=== PATIENT | male | born 1955 | race Caucasian/White ===

== ENCOUNTER 2022-09-24 21:15 | Emergency (ER) | payer MEDICAID, OTHER, SELFPAY ==
--- NOTE | ~2022-09-24 | XR_ITS ---
EXAMINATION: XR CHEST CLINICAL INFORMATION: Cough. COMPARISON: None available. TECHNIQUE: Frontal view of the chest was obtained. FINDINGS: Streaky opacities in the left greater than right lung bases, favored to represent subsegmental atelectasis. Otherwise, clear lungs. No pleural effusion or pneumothorax. No significant cardiomediastinal contour abnormality. No acute osseous findings. XR/XR chest 1V IMPRESSION: Bibasilar subsegmental atelectasis. Otherwise, clear lungs. No pleural effusion or pneumothorax.
[2022-09-24 21:24] VITALS: BP 143/93; PULSE 104; RESP 20; TEMP 38.2; O2SAT 94; BMI 27.3
[2022-09-24 22:24] LABS: Influenza A PCR NEGATIVE (Negative); Influenza B PCR NEGATIVE (Negative); Resp Syncy Virus RNA Qual PCR NEGATIVE (Negative); SARS COV2 PCR INHOUSE NEGATIVE (Negative)
[2022-09-25] MEDS: Acetaminophen 325 MG TABLET 650 MG PO (00:45)
[2022-09-25 00:46] LABS: MANUAL DIFF FLAG NO
[2022-09-25 00:47] LABS: Basophils Percent Auto 0.3 % (0-2); Eosinophils Absolute Auto 0.1 X10*3/uL (0.0-0.4); Eosinophils Percent Auto 0.8 % (0-4); Hematocrit 42.9 % (42.0-52.0); Hemoglobin 14.6 g/dl (14.0-18.0); Imm Gran Abs Auto 0.02 X10*3/uL (0.00-0.03); Imm Gran Pct Auto 0.2 % (0.0-0.4); Lymphocytes Absolute Auto 1.4 X10*3/uL (1.2-4.9); Lymphocytes Percent Auto 12.2 % (20-40); Mean Corpuscular Hemoglobin 32.3 pg (27.0-33.0); Mean Corpuscular Volume 94.9 fL (80.0-98.0); Mean Platelet Volume 9.3 fL (9.4-12.4); Monocytes Absolute Auto 0.9 X10*3/uL (0.1-1.2); Monocytes Percent Auto 7.7 % (2-11); Neutrophils Absolute Auto 9.1 x10*3/uL (2.0-8.3); Neutrophils Percent Auto 78.8 % (45-73); Platelet Count 310 X10*3/uL (160-400); Red Blood Count 4.52 X10*6/uL (4.60-5.80); Red Cell Distribution Width 12.8 % (11.0-16.0); White Blood Count 11.6 X10*3/uL (4.8-10.8)
--- NOTE | 2022-09-25 00:56 | ED_ITS ---
HPI - General Adult General Chief complaint: Fever Stated complaint: fever,high bp,coughing Time Seen by Provider: 09/25/22 00:07 Source: patient Mode of arrival: ambulatory Limitations: no limitations History of Present Illness HPI narrative: This is a 67-year-old male presenting to the emergency department fatigue, malaise, myalgias, dry cough for the past 3 days worsening. He thinks he may have some wheezing. Symptoms came on suddenly. Patient denies sick contacts. Patient denies chest pain, shortness of breath, nausea, vomiting, abdominal pain, vision changes, dizziness, headache, urinary symptoms or changes in bowel habits. Related Data Previous Rx's Medication Instructions Recorded albuterol sulfate 90 mcg/actuation 2 inh inhalation Q4-6H PRN 09/25/22 breath activated powder inhaler shortness of breath or wheezing #1 ea benzonatate 100 mg capsule 100 mg PO BID PRN cough #20 caps 09/25/22 doxycycline hyclate 100 mg capsule 100 mg PO BID 10 days #20 caps 09/25/22 prednisone 20 mg tablet 40 mg PO DAILY 5 days #10 tabs 09/25/22 Allergies Allergy/AdvReac Type Severity Reaction Status Date / Time No Known Allergies Allergy Verified 09/24/22 21:24 Review of Systems Review of Systems: Constitutional : No Weight loss, + Fever, + Chills, + Fatigue, + Malaise ENT/Mouth : No sore throat, No Rhinorrhea Eyes: No Eye Pain, No Swelling, No Redness Cardiovascular : No Chest Pain, No SOB, No Dyspnea on Exertion, No Orthopnea, No Edema, No Palpitations Respiratory : + Cough, No Sputum, + Wheezing Gastrointestinal : No Nausea, No Vomiting, No Diarrhea, No Constipation, No abdominal Pain, No Hematochezia, No Melena Genitourinary : No Dysuria, No Urinary Frequency, No Hematuria, Musculoskeletal : No joint pain, No Myalgias, No Joint Swelling Skin : No Skin Lesions, No rash Neuro : No Weakness, No Numbness, No Dizziness, No Headache Psych : No Anxiety/Panic, No Depression All other systems reviewed and are negative Yes all other systems are reviewed and are negative [facility] Past Medical History Attestation statement: The following information was validated with the patient. Source: old records reviewed and nursing notes reviewed Social History Social History Advance Directives: No Advance Directives Information Provided: Yes Physical Exam ED Vital Signs: Vital Signs - 24 hr 09/24/22 21:24 Temperature 100.8 F H Pulse Rate 104 H Respiratory Rate 20 Blood Pressure 143/93 H Pulse Oximetry 94 Oxygen Delivery Method Room Air BMI result Body Mass Index 27.3 vss Appearance: Alert.? Oriented X3.? No acute distress.? Head: Normocephalic, atraumatic, no step-offs or deformities Eyes: Pupils equal, round and reactive to light.? CVS: Normal heart rate and rhythm.? Pulses normal.? Respiratory: No respiratory distress.? Breath sounds w/ faint expiratory wheez ing throughout on expiration .? Abdomen: Soft and nontender.? Skin: Skin warm and dry.? Normal skin color.? Normal skin turgor.? Extremities: No lower extremity edema.? No calf ttp. 5/5 strength to bilateral upper and lower extremities Neuro: Oriented X 3.? No motor deficit.? No sensory deficit. CN 2-12 intact Course Reevaluation(s) Reevaluation #1: Gave albuterol inhaler, prednisone and doxycycline here. CBC with slight leukocytosis however no left shift. Chemistry unremarkable. Normal lactic acid. COVID, RSV and influenza negative. Suspected bacterial bronchitis. Will treat with doxycycline, albuterol, prednisone. Advised to return with new or worsening symptoms. Educated patient on diagnosis and treatment plan, answered all question, patient verbalizes understanding. At this time patient will be discharged home, advised to return with new or worsening symptoms. Educated on worrisome signs and symptoms and when to return. At this time I feel comfortable discharge home. Time: 01:11 Medications Administered Discontinued Medications Generic Name Dose Route Start Last Admin Trade Name Ross PRN Reason Stop Dose Admin Acetaminophen 650 mg 09/25/22 00:07 09/25/22 00:45 Acetaminophen 325 Mg Tablet PO 09/25/22 00:08 650 mg ONCE ONE Administration Medical Decision Making Medical Decision Making [facility] Narrative: [id number] 67-year-old male presents URI symptoms the past 3 days reports subjective fevers and chills. Physical examination benign. Breath sounds w/ Breath sounds w/ faint expiratory wheezing throughout on expiration . Patient nontoxic appearing. Vital signs significant for fever, tachycardia. Concerns for possible bacterial bronchitis versus viral illness. Unlikely pulmonary embolism, pneumonia, ACS. Tachycardia likely secondary to fever. Plan at this time antipyretic, basic labs, blood cultures, lactic, chest x-ray and viral test. Differential Diagnosis Differential Diagnoses: The differential diagnosis associated with the presentation includes Concerns for possible bacterial bronchitis versus viral illness. Unlikely pulmonary embolism, pneumonia, ACS. Tachycardia likely secondary to fever. Admission/Observation Consideration of admission/observation: Escalation of care including admission/observation considered Not indicated Lab Data MDM Lab Attestation statement: I reviewed the patient's lab results. 09/25/22 00:40 09/25/22 00:40 Labs: Lab Results 09/24/22 09/25/22 Range/Units 21:41 00:40 WBC 11.6 H (4.8-10.8) X10*3/uL RBC 4.52 L (4.60-5.80) X10*6/uL Hgb 14.6 (14.0-18.0) g/dl Hct 42.9 (42.0-52.0) % MCV 94.9 (80.0-98.0) fL MCH 32.3 (27.0-33.0) pg MCHC 34.0 (31.0-36.0) g/dl RDW 12.8 (11.0-16.0) % Plt Count 310 (160-400) X10*3/uL MPV 9.3 L (9.4-12.4) fL Immature Gran % (Auto) 0.2 (0.0-0.4) % Neut % (Auto) 78.8 H (45-73) % Lymph % (Auto) 12.2 L (20-40) % [place] % (Auto) 7.7 (2-11) % Eos % (Auto) 0.8 (0-4) % Baso % (Auto) 0.3 (0-2) % Lymph # (Auto) 1.4 (1.2-4.9) X10*3/uL [place] # (Auto) 0.9 (0.1-1.2) X10*3/uL Eos # (Auto) 0.1 (0.0-0.4) X10*3/uL Baso # (Auto) 0.0 (0.0-0.2) X10*3/uL Abs Immat Gran (auto) 0.02 (0.00-0.03) X10*3/uL Absolute Neuts (auto) 9.1 H (2.0-8.3) x10*3/uL Absolute Nucleated RBC 0.000 (0.0-0.012) X10*3/uL Nucleated RBC % (auto) 0.0 (0.0-0.2) /100WBC Influenza Type A (PCR) NEGATIVE (Negative) Influenza Type B (PCR) NEGATIVE (Negative) RSV RNA Qual (PCR) NEGATIVE (Negative) SARS-CoV-2 RNA (RT-PCR) NEGATIVE (Negative) Independent Interpretation I performed an independent interpretation of an: Plain X-Ray (XR/XR chest 1V IMPRESSION: Bibasilar subsegmental atelectasis. Otherwise, clear lungs. No pleural effusion or pneumothorax.) Radiology Impression Discussion of test interpretation with radiology: I have reviewed the radiologist's reading. Core Measures AMI core measures followed: Yes Measure exclusions: not indicated Critical Care Time Critical Care Time Critical Care Time: No Discharge Plan Discharge Clinical Impression: Bronchitis Patient Disposition: Home, Self-Care Instructions: Acute Bronchitis (ED) Additional Instructions: Take your medications as prescribed. If you were prescribed antibiotics today, it is important that you take your medication to their entirety, do not skip any doses, do not finish them early. Follow-up with your primary care provider this week. Return to the emergency department with new or worsening symptoms. Such as fevers, chills, chest pain, shortness of breath, nausea, vomiting, dizziness, headache, vision changes, lethargy In case of emergency call 911 Prescriptions: New prednisone 20 mg tablet 40 mg PO DAILY 5 Days Qty: 10 0RF albuterol sulfate 90 mcg/actuation aerosol powdr breath activated 2 inh inhalation Q4-6H PRN (Reason: shortness of breath or wheezing) Qty: 1 0RF doxycycline hyclate 100 mg capsule 100 mg PO BID 10 Days Qty: 20 0RF benzonatate 100 mg capsule 100 mg PO BID PRN (Reason: cough) Qty: 20 0RF Referrals: Physician,None [Primary Care Provider] - 2 days Stand Alone Forms: Work/School Release
[2022-09-25 00:59] LABS: Lactic Acid 0.8 mmol/L (0.5-2.0)
[2022-09-25 01:04] LABS: Alanine Aminotransferase 16 U/L (0-40); Albumin Level 4.1 g/dL (3.5-5.0); Alkaline Phosphatase 76 U/L (39-117); Anion Gap 15 (12-20); Aspartate Amino Transferase 16 U/L (5-37); Blood Urea Nitrogen 11 mg/dL (9-16); Calcium 8.7 mg/dL (8.4-10.2); Carbon Dioxide 24 mmol/L (22-29); Chloride 104 mmol/L (96-108); Creatinine Clr Calc Pharmacy 85.2; Estimated Glomerular Filt Rate > 60; Glucose Random 111 mg/dL (60-115); Potassium 4.2 mmol/L (3.3-5.1); Sodium 139 mmol/L (135-145); Total Protein 7.9 g/dL (6.5-8.0)
[2022-09-25 01:17] VITALS: RESP 16; O2SAT 98
[2022-09-25] MEDS: Albuterol Sulfate 90 MCG 8 GM INHALER 4 PUFF INHALE (01:17)
[2022-09-25] MEDS: Doxycycline Monohydrate 100 MG CAPSULE PO (01:22)
[2022-09-25] MEDS: predniSONE 20 MG TABLET 40 MG PO (01:22)
== END 2022-09-25 01:22 | disposition home or self-care (01) ==
PROVIDERS: Physician Assistant; Emergency Provider Emergency Medicine
DX: J40 Bronchitis, not specified as acute or chronic (principal); R50.9 Fever, unspecified; Z20.822 Contact with and (suspected) exposure to COVID-19; Z20.828 Contact with and (suspected) exposure to other viral communicable diseases
CPT/HCPCS: 0241U; 36415; 71045; 80053; 83605; 85025; 87040; 94640; 94664; 99283; 99284

== ENCOUNTER 2023-05-22 10:52 | Emergency (ER) | payer MEDICAID, OTHER, SELFPAY ==
--- NOTE | ~2023-05-22 | XR_ITS ---
EXAMINATION: XR LUMBAR SPINE CLINICAL INFORMATION: Reason for Exam pain after lifting, radiating down L leg COMPARISON: None TECHNIQUE: Frontal lateral and coned-down L5-S1 frontal lateral, total of 3 views FINDINGS: Five [id number] lumbar vertebrae were identified maintaining normal height and alignments. Narrowing of intervertebral disc spaces suggest underlying degenerative disc disease. Paravertebral soft tissues are unremarkable. There are radiolucencies, most likely superimposed bowel gas.. No radiographic evidence of osteolytic or osteoblastic lesions. XR/XR lumbar spine 2-3V IMPRESSION: Degenerative disc disease, no fracture.
[2023-05-22 11:04] VITALS: BP 197/112; PULSE 79; TEMP 36.6; O2SAT 97; BMI 27.1
--- NOTE | 2023-05-22 11:04 | ED.BACK ---
HPI - Back Pain/Injury General Chief Complaint: General Medical Stated Complaint: back pain Time Seen by Provider: 05/22/23 11:38 Source: patient Limitations: no limitations History of Present Illness HPI Narrative: Patient is a 68-year-old male presents emergency department with reports of diffuse lower back pain. Onset was 3 days ago, states it began after he was doing some heavy lifting. No overt fall or trauma. Pain does radiate down the left leg but not on the right. Denies fevers, chills, burning with micturition, urinary frequency/urgency/hesitancy, bladder or bowel dysfunction, numbness or tingling of the perineum or bilateral legs. Denies any recent surgical procedures, any known immune compromising conditions, personal history of cancer, or IV drug usage. He also states that he requires a refill on his medications, he does not have a PCP in the area, he moved from [facility] a little over a year ago, and states he will be running out of his medications soon. He takes levothyroxine 100 mcg daily, in addition he is supposed to be taking losartan 50 mg twice daily that has only been taking it once a day that he does not run out. Denies Headache vision changes shortness breath, numbness or tingling of the extremities, edema. MD elicited complaint: back pain Related Data Previous Rx's Medication Instructions Recorded albuterol sulfate 90 mcg/actuation 2 inh inhalation Q4-6H PRN 09/25/22 breath activated powder inhaler shortness of breath or wheezing #1 ea benzonatate 100 mg capsule 100 mg PO BID PRN cough #20 caps 09/25/22 doxycycline hyclate 100 mg capsule 100 mg PO BID 10 days #20 caps 09/25/22 prednisone 20 mg tablet 40 mg (2 x 20 mg) PO DAILY 5 days 09/25/22 #10 tabs cyclobenzaprine 10 mg tablet 10 mg PO TID PRN muscle spasm #20 05/22/23 tabs levothyroxine 100 mcg capsule 100 mcg PO DAILY #30 caps 05/22/23 losartan 50 mg tablet 50 mg PO BID #60 tabs 05/22/23 Allergies Allergy/AdvReac Type Severity Reaction Status Date / Time No Known Allergies Allergy Verified 09/24/22 21:24 Review of Systems Review of Systems: Yes all other systems are reviewed and are negative PMFSH Past Medical History Attestation statement: The following information was validated with the patient. Source: old records reviewed Onset Date is defined in the Problem List Problems that require an onset date and time if occurred within 24 hrs of arrival to the ED Aortic Dissection and Rupture; Neurologic impairment; Cardiopulmonary Arrest; Endotracheal Intubation; Insertion or Replacement of Mechanical Circulatory Assist Device Medical History (Updated 05/22/23 @ 15:37 by Taylor Daily CNP) Hypothyroidism Hypertension Social History Social History Advance Directives: No Advance Directives Information Provided: No Physical Exam Vital Signs: Vital Signs: Last Vital Signs Temp 98.2 F 05/22/23 15:36 Pulse 90 05/22/23 15:36 Resp 19 05/22/23 15:36 BP 158/92 H 05/22/23 15:36 Pulse Ox 98 05/22/23 15:36 O2 Del Method Room Air 05/22/23 15:36 BMI result Body Mass Index 27.1 Appearance: Alert.?Oriented to person, place and time. No acute distress.?Normal affect. Eyes: Pupils equal, round and reactive to light.? ENT: Pharynx normal.?? Neck: Normal inspection.? Neck supple.?? CVS: Heart sounds normal. Normal heart rate and rhythm.? Pulses normal; bilateral radial pulses 2+, bilateral posterior tibial/dorsalis pedis pulses 2+.? Respiratory: No respiratory distress.? Lung sounds clear to auscultation bilaterally?? Abdomen: Soft and non-tender. Normoactive bowel sounds. No pulsatile mass.?? Skin: Skin warm and dry.? Normal skin color.? Normal skin turgor.?? Extremities: No lower extremity edema.? No calf ttp? Back: + mild paraspinal muscular tenderness from lumbar region to coccyx. No CVA tenderness. No midline spinal tenderness, step-off's, or deformity. Full ROM intact in bilateral lower extremities. Straight leg test negative on right; Straight leg test positive on left. No rashes, lesions, areas of induration or fluctuance, or signs of infection noted., Neuro: Moves all extremities spontaneously. 5/5 strength in hip extension/flexion, abduction, adduction. Sensation to light touch intact bilaterally. Patellar and Achilles reflex 2+ bilaterally. No ataxia, gait normal and steady.. No focal neuro deficits. Course Course Course Narrative: This is a rapid medical exam: Additional HPI, ROS, PE not included below will be deferred to primary provider. Patient is a 68-year-old [place]-speaking male presenting to the ED with complaint of lower back pain for the past 3 days. Denies fall or other trauma. States pain began after lifting something heavy. States pain is radiating down left leg. BP elevated in triage, reports hx of HTN. Does not currently have a PCP, but was on medication for his BP in [facility]. Has been here one year. Will also be running out of his thyroid medication soon. Denies saddle anesthesia, bowel or bladder incontinence, fever. Was prescribed Losartan 50mg BID and levothyroxine 100mcg in [facility]. Has small supply of his medications left, has been taking the Losartan daily instead of BID. Plan: X-ray Medications Administered Discontinued Medications Generic Name Dose Route Start Last Admin Trade Name Freq PRN Reason Stop Dose Admin Cyclobenzaprine HCl 10 mg 05/22/23 11:45 05/22/23 12:19 Cyclobenzaprine Hcl 10 Mg Tablet PO 05/22/23 11:46 10 mg ONCE ONE Administration Hydralazine HCl 10 mg 05/22/23 13:49 05/22/23 14:14 Hydralazine Hcl 20 Mg/Ml Vial IVPUSH 05/22/23 13:50 10 mg ONCE ONE Administration Protocol Losartan Potassium 50 mg 05/22/23 11:53 05/22/23 12:19 Losartan Potassium 50 Mg Tablet PO 05/22/23 11:54 50 mg ONCE ONE Administration Protocol Medical Decision Making Medical Decision Making MDM Narrative: patient is a 68-year-old male past medical history of hypertension and hyperthyroidism presenting to the emergency department for evaluation of lower back pain as per HPI. XR obtained prior to my assumption of care reveals Degenerative changes but no acute fracture. given onset of pain after heavy lifting, I suspect Pain is most consistent with muscular pain due to a strain with radicular component as it is radiating down the right leg, although cannot completely exclude herniated disc. On neurological exam there are no deficits. Not consistent with spinal fracture, spinal infection, epidural abscess, AAA, epidural abscess, or dissection. No high risk past medical history including incontinence, fever, immunosuppression, recent surgery or lumbar puncture, coagulopathy, significant trauma, recent unintentional weight loss, pulsatile mass, history of cancer, history of TB, history of IV drug use that would warrant MRI or CT. Not consistent with pyelonephritis, urinary tract infection, renal calculi, appendicitis, diverticulitis. On exam no concern for cauda equina syndrome. No additional imaging is currently indicated at this time. he received Flexeril while in the emergency department with improvement in pain. obtained basic labs and urinalysis as he has uncontrolled hypertension and known hypothyroidism, no evidence of end-organ damage, not consistent with thyroid storm or myxedema coma. was hypertensive in the emergency department systolic blood pressure over 110, unfortunately his oral losartan did not improve this, and required IV hydralazine 10 mg, with improvement 158/92 upon manual reassessment. prescriptions for losartan levothyroxine were sent to local pharmacy with 30 days' supply, and provided with contact information for local primary care providers. Reviewed worrisome signs and symptoms that would warrant re-evaluation in the emergency department. All questions answered. Stable for discharge. Differential Diagnosis Differential Diagnoses: The differential diagnosis associated with the presentation includes ( see narrative above) Admission/Observation Consideration of admission/observation: Escalation of care including admission/observation considered ( see narrative above) Lab Data MDM Lab Attestation statement: I reviewed the patient's lab results. ( See narrative above) 05/22/23 12:00 05/22/23 11:59 Labs: Lab Results 05/22/23 05/22/23 05/22/23 Range/Units 11:59 12:00 13:00 WBC 5.3 (4.8-10.8) X10*3/uL RBC 4.60 (4.60-5.80) X10*6/uL Hgb 15.3 (14.0-18.0) g/dl Hct 44.4 (42.0-52.0) % MCV 96.5 (80.0-98.0) fL MCH 33.3 H (27.0-33.0) pg MCHC 34.5 (31.0-36.0) g/dl RDW 12.7 (11.0-16.0) % Plt Count 251 (160-400) X10*3/uL MPV 9.7 (9.4-12.4) fL Immature Gran % (Auto) 0.2 (0.0-0.4) % Neut % (Auto) 65.5 (45-73) % Lymph % (Auto) 22.1 (20-40) % [place] % (Auto) 9.0 (2-11) % Eos % (Auto) 2.4 (0-4) % Baso % (Auto) 0.8 (0-2) % Lymph # (Auto) 1.2 (1.2-4.9) X10*3/uL [place] # (Auto) 0.5 (0.1-1.2) X10*3/uL Eos # (Auto) 0.1 (0.0-0.4) X10*3/uL Baso # (Auto) 0.0 (0.0-0.2) X10*3/uL Abs Immat Gran (auto) 0.01 (0.00-0.03) X10*3/uL Absolute Neuts (auto) 3.5 (2.0-8.3) x10*3/uL Absolute Nucleated RBC 0.000 (0.0-0.012) X10*3/uL Nucleated RBC % (auto) 0.0 (0.0-0.2) /100WBC Sodium 139 (135-145) mmol/L Potassium 4.4 (3.3-5.1) mmol/L Chloride 105 (96-108) mmol/L Carbon Dioxide 27 (22-29) mmol/L Anion Gap 11 L (12-20) BUN 15 (9-16) mg/dL Creatinine 0.80 (0.5-1.4) mg/dL Estim Creat Clear Calc 81.9 Estimated GFR > 60 Random Glucose 88 (60-115) mg/dL Calcium 9.0 (8.4-10.2) mg/dL Total Bilirubin 0.5 (0.0-1.0) mg/dL AST 17 (5-37) U/L ALT 18 (0-40) U/L Alkaline Phosphatase 75 (39-117) U/L Total Protein 7.8 (6.5-8.0) g/dL Albumin 4.2 (3.5-5.0) g/dL TSH 1.57 (0.32-4.0) uIU/mL Urine Color Yellow Urine Appearance Clear Urine pH 7.0 (5.0-9.0) Ur Specific [place] 1.015 (1.005-1.025) Urine Protein Negative (Neg-Trace) mg/dL Urine Glucose (UA) Negative (Negative) mg/dL Urine Ketones Negative (Negative) mg/dL Urine Blood Negative (Negative) Urine Nitrite Negative (Negative) Ur Leukocyte Esterase Negative (Negative) Independent Interpretation I performed an independent interpretation of an: Plain X-Ray ( I personally interpreted XR imaging and agree with radiologist impression.) Radiology Impression Discussion of test interpretation with radiology: I have reviewed the radiologist's reading. Radiologist Impression: XR/XR lumbar spine 2-3V IMPRESSION: Degenerative disc disease, no fracture. Prescription Management I considered prescription management with: Pain Medication and Other ( See narrative above) Critical Care Time Critical Care Time Critical Care Time: Yes Total Critical Care Time: 35 Attestation: I personally attest to this critical care time spent taking care of the patient exclusive of all other billable procedures was approximately 35 minutes including initial evaluation of patient, ordering tests, x-ray interpretation, EKG interpretation, medical consultation, documentation, re-evaluation. Discharge Plan Discharge Clinical Impression: Acute lumbar radiculopathy, Hypertension, Hypothyroidism Patient Disposition: Home, Self-Care Instructions: Hypothyroidism (ED), Lumbar Radiculopathy (ED), Hypertension (ED), Lower Back Exercises (ED) Prescriptions: New losartan 50 mg tablet 50 mg PO BID Qty: 60 0RF levothyroxine 100 mcg capsule 100 mcg PO DAILY Qty: 30 0RF cyclobenzaprine 10 mg tablet 10 mg PO TID PRN (Reason: muscle spasm) Qty: 20 0RF No Action prednisone 20 mg tablet 40 mg PO DAILY 5 Days Qty: 10 0RF albuterol sulfate 90 mcg/actuation aerosol powdr breath activated 2 inh inhalation Q4-6H PRN (Reason: shortness of breath or wheezing) Qty: 1 0RF doxycycline hyclate 100 mg capsule 100 mg PO BID 10 Days Qty: 20 0RF benzonatate 100 mg capsule 100 mg PO BID PRN (Reason: cough) Qty: 20 0RF Interventions: ED Discharge Assessment Last Done: 05/22/23 15:46 Discharge Date/Time: 05/22/23 15:46
[2023-05-22 12:03] LABS: MANUAL DIFF FLAG NO
[2023-05-22 12:05] LABS: Basophils Percent Auto 0.8 % (0-2); Eosinophils Absolute Auto 0.1 X10*3/uL (0.0-0.4); Eosinophils Percent Auto 2.4 % (0-4); Hematocrit 44.4 % (42.0-52.0); Hemoglobin 15.3 g/dl (14.0-18.0); Imm Gran Abs Auto 0.01 X10*3/uL (0.00-0.03); Imm Gran Pct Auto 0.2 % (0.0-0.4); Lymphocytes Absolute Auto 1.2 X10*3/uL (1.2-4.9); Lymphocytes Percent Auto 22.1 % (20-40); Mean Corpuscular HGB Conc 34.5 g/dl (31.0-36.0); Mean Corpuscular Hemoglobin 33.3 pg (27.0-33.0); Mean Corpuscular Volume 96.5 fL (80.0-98.0); Mean Platelet Volume 9.7 fL (9.4-12.4); Monocytes Absolute Auto 0.5 X10*3/uL (0.1-1.2); Neutrophils Absolute Auto 3.5 x10*3/uL (2.0-8.3); Neutrophils Percent Auto 65.5 % (45-73); Platelet Count 251 X10*3/uL (160-400); Red Cell Distribution Width 12.7 % (11.0-16.0); White Blood Count 5.3 X10*3/uL (4.8-10.8)
[2023-05-22] MEDS: Cyclobenzaprine HCl 10 MG TABLET PO (12:19)
[2023-05-22] MEDS: Losartan Potassium 50 MG TABLET PO (12:19)
[2023-05-22 12:26] VITALS: BP 172/108
[2023-05-22 12:26] LABS: Alanine Aminotransferase 18 U/L (0-40); Albumin Level 4.2 g/dL (3.5-5.0); Alkaline Phosphatase 75 U/L (39-117); Anion Gap 11 (12-20); Aspartate Amino Transferase 17 U/L (5-37); Bilirubin Total 0.5 mg/dL (0.0-1.0); Blood Urea Nitrogen 15 mg/dL (9-16); Carbon Dioxide 27 mmol/L (22-29); Chloride 105 mmol/L (96-108); Creatinine Clr Calc Pharmacy 81.9; Estimated Glomerular Filt Rate > 60; Glucose Random 88 mg/dL (60-115); Potassium 4.4 mmol/L (3.3-5.1); Sodium 139 mmol/L (135-145); Total Protein 7.8 g/dL (6.5-8.0)
[2023-05-22 12:40] LABS: TSH reflex Free T4 1.57 uIU/mL (0.32-4.0)
--- NOTE | 2023-05-22 12:54 | PC.NURSE ---
ambulated to bathroom with steady gait to provide urine sample
[2023-05-22 13:15] LABS: Appearance Urine Clear; Color Urine Yellow; Glucose Urine UA Negative (Negative); Leukocyte Esterase Urine Negative (Negative); Nitrite Urine Negative (Negative); Specific Gravity - Urine 1.015 (1.005-1.025); Urine Blood Negative (Negative); Urine Ketones Negative (Negative); Urine Protein Negative (Neg-Trace)
[2023-05-22 13:49] VITALS: BP 172/110; PULSE 77; RESP 16; TEMP 36.8; O2SAT 96
[2023-05-22] MEDS: hydrALAZINE HCl 20 MG/ML VIAL 10 MG IVPUSH (14:14)
--- NOTE | 2023-05-22 14:16 | PC.NURSE ---
TEO established, medicated per the [facility]
[2023-05-22 14:45] VITALS: BP 168/105; PULSE 86; RESP 16; O2SAT 98
[2023-05-22 15:36] VITALS: BP 158/92; PULSE 90; RESP 19; TEMP 36.8; O2SAT 98
== END 2023-05-22 15:46 | disposition home or self-care (01) ==
PROVIDERS: Nurse Practitioner Family; Emergency Provider Student in an Organized Health Care Education/Training Program
DX: M54.16 Radiculopathy, lumbar region (principal); I10 Essential (primary) hypertension; E03.9 Hypothyroidism, unspecified
CPT/HCPCS: 36415; 72100; 80053; 81003; 84443; 85025; 96374; 99284; J0360

== ENCOUNTER 2023-06-09 10:17 | Emergency (ER) | payer MEDICAID, OTHER, SELFPAY ==
--- NOTE | ~2023-06-09 | CT_ITS ---
EXAMINATION: CT ABDOMEN AND PELVIS WITHOUT CONTRAST CLINICAL INFORMATION: Abdominal pain COMPARISON: None available. TECHNIQUE: Multidetector volumetric imaging was performed from the superior aspect of the liver through the pubic symphysis. Sagittal and coronal reformatted images were obtained on the technologist's workstation. This CT examination was performed using dose optimization techniques as appropriate, variously including the following: *Automated exposure control *Adjustment of mA and/or kV according to patient size (this includes techniques or standardized protocols for targeted exams where dose is matched to indication/reason for exam; i.e. extremities or head) *Use of iterative reconstruction technique DLP: 408 mGy-cm FINDINGS: LUNG BASES: The visualized lung bases are unremarkable. LIVER, GALLBLADDER, AND BILIARY TREE: The liver is normal in size, shape, and attenuation. No focal hepatic lesion or biliary ductal dilatation is present. The gallbladder is unremarkable with no evidence of radiopaque gallstones, gallbladder wall thickening, or obvious pericholecystic inflammatory changes. PANCREAS: Unremarkable. SPLEEN: Unremarkable. ADRENAL GLANDS: Unremarkable. KIDNEYS AND URETERS: The kidneys are normal in size, shape, and attenuation. No hydronephrosis, hydroureter, or calculi seen. There are multiple right renal cysts, only one of these cysts may not be simple, and this resides along the lateral interpolar cortex of the right kidney anteriorly where there is an apparent dependent layering fluid level in the cyst measuring 3.4 x 1.8 cm, likely layering protein or hemorrhage. No perinephric stranding. BLADDER: Unremarkable. GASTROINTESTINAL TRACT: There is wall thickening and pericolic fat stranding involving the sigmoid colon and rectum compatible with proctosigmoiditis. Remainder of the colon is unremarkable. Normal appendix. Stomach and small bowel are unremarkable. ABDOMINAL WALL: Bilateral fat-containing inguinal hernias without inflammation LYMPH NODES: Normal. VASCULAR: Aorta is mildly atherosclerotic but normal caliber. PELVIC VISCERA: Prostate is enlarged measuring 6.2 cm transversely. OSSEOUS STRUCTURES: No acute or suspicious osseous abnormalities. CT/CT abdomen pelvis wo IV con IMPRESSION: * Proctosigmoiditis. Infectious and inflammatory etiologies are considered. * Right renal cysts, most which are simple. There is one which may be complex or complicated cyst along the anterior interpolar cortex of the right kidney. Recommend nonemergent renal ultrasound for further evaluation.
[2023-06-09 11:16] VITALS: BP 142/84; PULSE 88; RESP 18; TEMP 36.5; O2SAT 96; BMI 27.5
--- NOTE | 2023-06-09 11:22 | ED_ITS ---
HPI - Abdominal Pain General Chief Complaint: Nausea/Vomiting/Diarrhea Stated Complaint: Abdominal pain Related Data Previous Rx's Medication Instructions Recorded albuterol sulfate 90 mcg/actuation 2 inh inhalation Q4-6H PRN 09/25/22 breath activated powder inhaler shortness of breath or wheezing #1 ea benzonatate 100 mg capsule 100 mg PO BID PRN cough #20 caps 09/25/22 doxycycline hyclate 100 mg capsule 100 mg PO BID 10 days #20 caps 09/25/22 prednisone 20 mg tablet 40 mg (2 x 20 mg) PO DAILY 5 days 09/25/22 #10 tabs cyclobenzaprine 10 mg tablet 10 mg PO TID PRN muscle spasm #20 05/22/23 tabs levothyroxine 100 mcg capsule 100 mcg PO DAILY #30 caps 05/22/23 losartan 50 mg tablet 50 mg PO BID #60 tabs 05/22/23 Allergies Allergy/AdvReac Type Severity Reaction Status Date / Time No Known Allergies Allergy Verified 06/09/23 11:16 [facility] Past Medical History Medical History (Updated 06/09/23 @ 20:01 by RAJESH Denis) Hypothyroidism Hypertension Social History Social History Advance Directives: No Advance Directives Information Provided: No Physical Exam ED Vital Signs: Vital Signs - 24 hr 06/09/23 11:16 Temperature 97.7 F Pulse Rate 88 Respiratory Rate 18 Blood Pressure 142/84 H Pulse Oximetry 96 Oxygen Delivery Method Room Air BMI result Body Mass Index 27.5 Course Course Course Narrative: RME:?68 yo male here with abdominal pain and diarrhea x1 day. Reports abd pain improves with passing BM. Endorses blood in toilet bowl after BM. No abd surgeries. no pepto bismol or iron supplements. labs, OBS, CT ordered Full HPI, ROS and PE to be performed by the primary ED provider. Reevaluation(s) Reevaluation #1: Patient left the ED without completing treatment Medical Decision Making Lab Data 06/09/23 11:30 06/09/23 11:30 Labs: Lab Results 06/09/23 Range/Units 11:30 WBC 19.8 H (4.8-10.8) X10*3/uL RBC 4.99 (4.60-5.80) X10*6/uL Hgb 16.4 (14.0-18.0) g/dl Hct 46.8 (42.0-52.0) % MCV 93.8 (80.0-98.0) fL MCH 32.9 (27.0-33.0) pg MCHC 35.0 (31.0-36.0) g/dl RDW 12.3 (11.0-16.0) % Plt Count 223 (160-400) X10*3/uL MPV 9.5 (9.4-12.4) fL Immature Gran % (Auto) 0.5 H (0.0-0.4) % Neut % (Auto) 88.9 H (45-73) % Lymph % (Auto) 4.9 L (20-40) % [place] % (Auto) 5.5 (2-11) % Eos % (Auto) 0.0 (0-4) % Baso % (Auto) 0.2 (0-2) % Lymph # (Auto) 1.0 L (1.2-4.9) X10*3/uL [place] # (Auto) 1.1 (0.1-1.2) X10*3/uL Eos # (Auto) 0.0 (0.0-0.4) X10*3/uL Baso # (Auto) 0.0 (0.0-0.2) X10*3/uL Abs Immat Gran (auto) 0.10 H (0.00-0.03) X10*3/uL Absolute Neuts (auto) 17.6 H (2.0-8.3) x10*3/uL Absolute Nucleated RBC 0.000 (0.0-0.012) X10*3/uL Nucleated RBC % (auto) 0.0 (0.0-0.2) /100WBC PT 13.3 (11.1-13.3) SEC INR 1.1 (0.9-1.1) Sodium 137 (135-145) mmol/L Potassium 3.7 (3.3-5.1) mmol/L Chloride 103 (96-108) mmol/L Carbon Dioxide 27 (22-29) mmol/L Anion Gap 11 L (12-20) BUN 17 H (9-16) mg/dL Creatinine 0.84 (0.5-1.4) mg/dL Estim Creat Clear Calc 73.0 Estimated GFR > 60 Random Glucose 125 H (60-115) mg/dL Calcium 9.3 (8.4-10.2) mg/dL Magnesium 2.2 (1.6-2.6) mg/dL Total Bilirubin 0.6 (0.0-1.0) mg/dL AST 20 (5-37) U/L ALT 25 (0-40) U/L Alkaline Phosphatase 82 (39-117) U/L Total Protein 8.2 H (6.5-8.0) g/dL Albumin 4.2 (3.5-5.0) g/dL Lipase 13 (8-78) U/L Discharge Plan Discharge Clinical Impression: Abdominal pain Patient Disposition: Left W/O Completing Treatment Prescriptions: No Action prednisone 20 mg tablet 40 mg PO DAILY 5 Days Qty: 10 0RF albuterol sulfate 90 mcg/actuation aerosol powdr breath activated 2 inh inhalation Q4-6H PRN (Reason: shortness of breath or wheezing) Qty: 1 0RF doxycycline hyclate 100 mg capsule 100 mg PO BID 10 Days Qty: 20 0RF benzonatate 100 mg capsule 100 mg PO BID PRN (Reason: cough) Qty: 20 0RF losartan 50 mg tablet 50 mg PO BID Qty: 60 0RF levothyroxine 100 mcg capsule 100 mcg PO DAILY Qty: 30 0RF cyclobenzaprine 10 mg tablet 10 mg PO TID PRN (Reason: muscle spasm) Qty: 20 0RF Discharge Date/Time: 06/09/23 19:55
[2023-06-09 11:34] LABS: MANUAL DIFF FLAG NO
[2023-06-09 11:35] LABS: Basophils Percent Auto 0.2 % (0-2); Hematocrit 46.8 % (42.0-52.0); Hemoglobin 16.4 g/dl (14.0-18.0); Imm Gran Pct Auto 0.5 % (0.0-0.4); Lymphocytes Percent Auto 4.9 % (20-40); Mean Corpuscular Hemoglobin 32.9 pg (27.0-33.0); Mean Corpuscular Volume 93.8 fL (80.0-98.0); Mean Platelet Volume 9.5 fL (9.4-12.4); Monocytes Absolute Auto 1.1 X10*3/uL (0.1-1.2); Monocytes Percent Auto 5.5 % (2-11); Neutrophils Absolute Auto 17.6 x10*3/uL (2.0-8.3); Neutrophils Percent Auto 88.9 % (45-73); Platelet Count 223 X10*3/uL (160-400); Red Blood Count 4.99 X10*6/uL (4.60-5.80); Red Cell Distribution Width 12.3 % (11.0-16.0); White Blood Count 19.8 X10*3/uL (4.8-10.8)
[2023-06-09 11:40] LABS: INTERNATIONAL NORM RATIO 1.1 (0.9-1.1); Prothrombin Time 13.3 SEC (11.1-13.3)
[2023-06-09 11:51] LABS: Alanine Aminotransferase 25 U/L (0-40); Albumin Level 4.2 g/dL (3.5-5.0); Alkaline Phosphatase 82 U/L (39-117); Anion Gap 11 (12-20); Aspartate Amino Transferase 20 U/L (5-37); Bilirubin Total 0.6 mg/dL (0.0-1.0); Blood Urea Nitrogen 17 mg/dL (9-16); Calcium 9.3 mg/dL (8.4-10.2); Carbon Dioxide 27 mmol/L (22-29); Chloride 103 mmol/L (96-108); Estimated Glomerular Filt Rate > 60; Glucose Random 125 mg/dL (60-115); Lipase 13 U/L (8-78); Magnesium 2.2 mg/dL (1.6-2.6); Potassium 3.7 mmol/L (3.3-5.1); Sodium 137 mmol/L (135-145); Total Protein 8.2 g/dL (6.5-8.0)
== END 2023-06-09 19:55 | disposition left against medical advice (07) ==
PROVIDERS: Physician Assistant Medical; Emergency Provider Emergency Medicine
DX: R10.9 Unspecified abdominal pain (principal); R11.2 Nausea with vomiting, unspecified; I10 Essential (primary) hypertension; Z79.899 Other long term (current) drug therapy
CPT/HCPCS: 36415; 74176; 80053; 83690; 83735; 85025; 85610; 99281; 99284